=== PATIENT | male | born 1940 | race Two or more races ===

== ENCOUNTER 2017-07-31 19:08 | Inpatient (IN) | payer OTHER, MEDICAID ==
[~2017-07-31] VITALS: Ht 165.1 cm; Wt 72.6 kg
[~2017-07-31 19:08] MED LIST: ASPI-1169 PO; ATOR10TA PO; CARV6.25 PO; Digoxin PO; FURO-144 PO; LOSA50TA3 PO; OSEL75CA PO; PANT40TA2 PO; WARF5TAB77 PO
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
--- NOTE | 2017-07-31 19:32 | NUR ---
VICE PRESIDENT OF COMMUNICATIONS BEDSIDE FOR CHEST X-RAY
[2017-07-31 19:34] LABS: BASOPHILS # (AUTO) 0.1 /CMM (0.0-0.2); BASOPHILS % (AUTO) 1.4 % (0.0-2.0); EOSINOPHILS % (AUTO) 1.1 % (0.0-6.0); HEMATOCRIT 47 % (39-51); HEMOGLOBIN 15.7 g/dL (13.5-17.5); LYMPHOCYTES # (AUTO) 1.2 /CMM (0.8-4.8); LYMPHOCYTES % (AUTO) 14.9 % (20.0-44.0); MEAN CORPUSCULAR HEMOGLOBIN 29 PG (26.0-33.0); MEAN CORPUSCULAR HGB CONC 33 g/dl (31.0-36.0); MEAN CORPUSCULAR VOLUME 88 fL (80-96); MONOCYTES # (AUTO) 0.8 /CMM (0.1-1.30); MONOCYTES % (AUTO) 9.9 % (2.0-12.0); NEUTROPHILS # (AUTO) 5.7 /CMM (1.8-8.9); NEUTROPHILS % (AUTO) 72.7 % (43.0-81.0); PLATELET COUNT (AUTO) 110 /CMM (150-450); RDW COEFFICIENT OF VARIATION 13.3 (11.5-15.0); RED BLOOD CELL COUNT(AUTO) 5.34 MIL/uL (4.5-6.0); WHITE BLOOD COUNT (AUTO) 7.9 K/uL (4.3-11.0)
[2017-07-31 19:44] LABS: CALCIUM, SERUM 9.6 mg/dL (8.5-10.1); CARBON DIOXIDE 25 mmol/L (21-32); CHLORIDE 103 mmol/L (98-107); CREATININE 1.1 mg/dL (0.6-1.3); GLUCOSE 212 mg/dL (74-106); POTASSIUM 3.5 mmol/L (3.5-5.1); SODIUM SERUM 139 mmol/L (136-145); UREA NITROGEN, BLOOD 29 mg/dL (7-18)
[2017-07-31 19:52] LABS: INR 1.5 (0.85-1.15)
[2017-07-31 20:11] LABS: TROPONIN I 0.017 ng/mL (0.00-0.056)
[2017-07-31] MEDS ORDERED: ASPIRIN EC 325 MG TABLET.DR PO ONE ×2 (20:57→21:00)
--- NOTE | 2017-07-31 21:00 | NUR ---
LUCAS PAGED, ASHWINI FARIAS FORMING ROLL OPERATOR HEAVY DUTY BORE MILL OPERATOR FOR PLASTIC
--- NOTE | 2017-07-31 21:23 | NUR ---
TELE 327-2 FOR CHEST PAIN AND SYNCOPE, ASHWINI FARIAS NP ADMITTING
[2017-07-31] MEDS ORDERED: NITROGLYCERIN 0.4 MG/TAB BOTTLE SL PRN (21:30)
[2017-07-31] MEDS ORDERED: INSULIN REGULAR, HUMAN 100 UNIT/ML 3 ML VIAL SQ PRN (21:30)
[2017-07-31] MEDS ORDERED: *INSULIN REGULAR(HUMULIN R)HUM 100 UNIT/ML VIAL SQ PRN (21:30)
[2017-07-31] MEDS ORDERED: MORPHINE SULFATE INJ 2 MG/ML DISP.SYRIN IV PRN (21:30)
[2017-07-31] MEDS ORDERED: IV NS 0.9% 1,000 ML IV SCH (21:30)
[2017-07-31] MEDS ORDERED: DEXTROSE 50%-WATER 50 ML DISP.SYRIN IV PRN (21:30)
[2017-07-31] MEDS ORDERED: ONDANSETRON HCL/PF 4 MG/2 ML VIAL IVP PRN (21:30)
--- NOTE | 2017-07-31 21:56 | NUR ---
REPORT GIVEN TO YOUNG ADULT LIBRARIANMAIKEL RO FOR QUENTIN
--- NOTE | 2017-07-31 22:15 | NUR ---
SENIOR PACKAGING ENGINEERTRANSPORTATION PROGRAM DIRECTOR NOTES: PATIENT ARRIVED TO UNIT FROM ER VIA GURNEY. ALERT, ORIENTED X 4, CROATIAN SPEAKING BUT CAN UNDERSTAND AND SPEAK A LITTLE MARTINIQUAIS. BREATHING EVEN AND UNLABORED. NO COMPLAINTS OF ANY PAIN OR DISCOMFORT OF THIS TIME. AT BEDSIDE. SKIN ASSESSMENT DONE; NO OPEN WOUNDS. PATIENT HAS PACEMAKER ON LEFT UPPER CHESTWALL. PATIENT ON TELE MONITOR; AFIB 86. IV ACCESS ON LEFT FOREARM. ORIENTED TOTHE USE OF CALL ORTEGA. BED IN LOW LOCKED POSITION. WILL CONTINUE TO MONITOR Addendum: 08/01/17 at 0120 by JAYJAY COTTER RN ADDITIONAL NOTES: DENIES DIZZINESS, DENIES NAUSEA AND VOMITING. DENIES WEAKNESS
[2017-07-31 22:20] VITALS: BP 120/85
[2017-07-31 22:30] VITALS: BP 120/85
[2017-07-31] MEDS: BLOOD SUGAR DIAGNOSTIC 1 EACH STRIP VI SCH (22:45)
--- NOTE | 2017-07-31 23:00 | NUR ---
RN NOTES: BSL 198. PATIENT REFUSED INSULIN. STATED THAT HE DOESN'T TAKE IT AT HOME, HE TAKES ONLY ORAL. EXPLAINED TO HIM THAT HE IS IN THE HOSPITAL, EXPLAINED ALSO THE RISKS OF NOT TAKING IT. PATIENT AWARE BUT STILL REFUSED. NUZHAT MARADIAGA MADE AWARE
[2017-07-31] MEDS: SIMVASTATIN 20 MG TABLET PO SCH (23:06)
[2017-07-31] MEDS: INSULIN REGULAR, HUMAN 100 UNIT/ML 3 ML VIAL SQ PRN (23:25)
[2017-08-01] VITALS (23 sets, daily range): BP systolic 103–147; BP diastolic 46–82
--- NOTE | 2017-08-01 04:04 | NUR ---
ORTHOTICS PROSTHETICS ASSISTANT NOTES: PATIENT USING THE URINAL AT THIS TIME. DENIES ANY PAIN OR DISCOMFORT. AT BEDSIDE. WILL CONTINUE TO MONITOR
--- NOTE | 2017-08-01 06:37 | NUR ---
RN NOTES: BSL 136. PATIENT REFUSED INSULIN.
--- NOTE | 2017-08-01 06:58 | NUR ---
OFFICE SERVICES MANAGER CLOSING NOTES: PATIENT IN BED, TAKING TO . PATIENT REMAINS STABLE. NO COMPLAINTS OF CHEST PAIN OR ANY DISCOMFORT THROUGH THE NIGHT. DENIES DIZZINESS. DENIES N/V. ON TELE MONITOR, AFIB 84/ V/ PACING WITH OCCASIONAL PVC's. ALL NEEDS ATTENDED TO. ALL DUE MEDICATIONS GIVEN ORDERED. REMINDED PATIENT NOT TO EAT ANYTHING BEFORE DR. JONES COMES. CALL ORTEGA WITHIN REACH. BED IN LOW LOCKED POSITION WITH SIDERAILSX2 UP. WILL ENDORSE QUENTIN TO AM SHIFT RN
[2017-08-01 07:22] LABS: BASOPHILS % (AUTO) 0.2 % (0.0-2.0); EOSINOPHILS % (AUTO) 0.7 % (0.0-6.0); HEMATOCRIT 47 % (39-51); HEMOGLOBIN 15.3 g/dL (13.5-17.5); LYMPHOCYTES % (AUTO) 13.5 % (20.0-44.0); MEAN CORPUSCULAR HEMOGLOBIN 30 PG (26.0-33.0); MEAN CORPUSCULAR HGB CONC 33 g/dl (31.0-36.0); MEAN CORPUSCULAR VOLUME 92 fL (80-96); MONOCYTES # (AUTO) 0.4 /CMM (0.1-1.30); MONOCYTES % (AUTO) 5.7 % (2.0-12.0); NEUTROPHILS # (AUTO) 5.8 /CMM (1.8-8.9); NEUTROPHILS % (AUTO) 79.9 % (43.0-81.0); PLATELET COUNT (AUTO) 98 /CMM (150-450); RDW COEFFICIENT OF VARIATION 14.3 (11.5-15.0); RED BLOOD CELL COUNT(AUTO) 5.08 MIL/uL (4.5-6.0); WHITE BLOOD COUNT (AUTO) 7.3 K/uL (4.3-11.0)
[2017-08-01] MEDS ORDERED: TERA2CAP4 PO (07:24)
[2017-08-01] MEDS ORDERED: VALS1TAB52 PO (07:24)
[2017-08-01] MEDS ORDERED: CARV25TA2 PO (07:24)
[2017-08-01] MEDS ORDERED: SITA100T PO (07:24)
[2017-08-01] MEDS ORDERED: GLIP1TAB6 PO (07:24)
[2017-08-01] MEDS ORDERED: RIVA10TA PO (07:24)
[2017-08-01] MEDS ORDERED: ATOR10TA PO (07:24)
[2017-08-01 07:31] LABS: CALCIUM, SERUM 8.8 mg/dL (8.5-10.1); CARBON DIOXIDE 26 mmol/L (21-32); CHLORIDE 106 mmol/L (98-107); CREATININE 0.9 mg/dL (0.6-1.3); GLUCOSE 134 mg/dL (74-106); MAGNESIUM 1.8 mg/dL (1.8-2.4); PHOSPHORUS 3.4 mg/dL (2.5-4.9); POTASSIUM 3.7 mmol/L (3.5-5.1); SODIUM SERUM 142 mmol/L (136-145); UREA NITROGEN, BLOOD 27 mg/dL (7-18)
[2017-08-01 07:40] LABS: CHOLESTEROL 83 mg/dL (<200); HDL CHOLESTEROL 37 mg/dL (40-60); LDL 47 mg/dL (0-99); THYROID STIMULATING HORMONE 1.054 uIU/mL (0.358-3.74); TRIGLYCERIDES 118 mg/dL (30-150)
--- NOTE | 2017-08-01 08:00 | NUR ---
RN NOTES PATIENT IN BED RESTING. ALERT,ORIENTED X3. PATIENT WITH AT BEDSIDE. PERIPHERAL IV INTACT PATENT. BED IN LOW LOCKED POSITION. CALL LIGHT WITHIN REACH. WILL CONTINUE TO MONITOR.
[2017-08-01] MEDS: ASPIRIN 325 MG TABLET PO SCH (08:23)
[2017-08-01] MEDS: CARVEDILOL 6.25 MG TABLET PO SCH ×2 (08:23→21:37)
[2017-08-01] MEDS: FUROSEMIDE 40 MG TABLET PO SCH (08:23)
[2017-08-01] MEDS: BLOOD SUGAR DIAGNOSTIC 1 EACH STRIP VI SCH ×4 (08:24→21:39)
[2017-08-01] MEDS: LOSARTAN POTASSIUM 50 MG TABLET PO SCH (08:24)
[2017-08-01] MEDS: PANTOPRAZOLE 40 MG TABLET.DR PO SCH (08:25)
[2017-08-01] MEDS ORDERED: OSELTAMIVIR PHOSPHATE 75 MG CAPSULE PO SCH (09:00)
[2017-08-01 09:30] LABS: INR 1.27 (0.87-1.13)
[2017-08-01 10:55] LABS: EOSINOPHILS % (MANUAL) 1 % (0-4); LYMPHOCYTES % (MANUAL) 12 % (16-48); MONOCYTES % (MANUAL) 3 % (0-11.0); NEUTROPHILS % (MANUAL) 84 (42-76)
--- NOTE | 2017-08-01 11:55 | NUR ---
MILK INSPECTOR NOTES PATIENT NOTED WITH V TACH LASTING ONLY COUPLE OF SECONDS. PATIENT STATES HE FELT WARM ALL OF A SUDDEN STATES HE WAS SPEAKING TO HIS SON WHILE IT HAPPENED. CHIKA NAVA INFORMED OF EPISODE WILL EVALUATE PATIENT. ALSO CHIKA WALLS NOTIFIED OF PATIENT HOME MEDICATIONS. STATES WILL REVIEW MEDICATIONS.
[2017-08-01] MEDS: INSULIN REGULAR, HUMAN 100 UNIT/ML 3 ML VIAL SQ PRN ×3 (12:53→21:43)
[2017-08-01] MEDS ORDERED: DIGOXIN 0.125 MG TABLET PO SCH (13:00)
--- NOTE | 2017-08-01 13:50 | NUR ---
TRAVEL PHYSICAL THERAPIST NOTES PATIENT NOTED WITH ANOTHER EPISODE OF V TAC. PATIENT STATES HE FELT HIS HEART BEATING FAST. PATIENT ALERT, ORIENTEDX3. DENIES ANY PAIN. CHIKA NAVA NOTIFIED, AT BEDSIDE EVALUATING PATIENT. WILL CONTINUE TO MONITOR.
[2017-08-01] MEDS ORDERED: MGSO4/D5W 100 ML IV SCH (14:00)
[2017-08-01] MEDS ORDERED: Magnesium 1GM/D5W 100ML PREMIX PIGGYBACK IV ONE (14:00)
--- NOTE | 2017-08-01 14:00 | NUR ---
SHEET TAILER NOTES ORDERS TO TRANSFER PATIENT TO ICU FOR AMIODARONE DRIP. PATIENT ALERT, ORIENTED X3 AT BEDSIDE. VS WNL. REPORT GIVEN TO NATALIIA KO. PATIENT TRANSFERRED TO ICU ROOM 257.
[2017-08-01] MEDS ORDERED: AMIODARONE 150 MG in IV D5W 100 ML IV ONE (15:00)
--- NOTE | 2017-08-01 15:08 | NUR ---
BOILERMAKING SUPERVISOR NOTE 1430: Received patient from Tele, transferred to ICU due to episodes of Vtach. Placed patient on the monitor, noted with SR 70's, with occasional V pacing. CN made Viktor CHEF DE FROID aware, CHEF DE FROID said to continue on Mg, Amio load and drip and keep in ICU. EKG done, NSR, made Viktor CHEF DE FROID aware. Patient verbalized he have been shocked via AICD when he was [place] [facility]. Patient accompanied by . Started new PIV on RW g20. 1500: No any significant changes noted at this time. kept clean, warm and and dry. Needs attended.
[2017-08-01] MEDS ORDERED: AMIODARONE 900 MG in IV D5W 482 ML IV PRN (16:00)
[2017-08-01] MEDS ORDERED: WARFARIN SODIUM 2 MG TABLET PO SCH (17:00)
[2017-08-01] MEDS ORDERED: IV NS 0.9% 1,000 ML IV PRN (17:30)
--- NOTE | 2017-08-01 18:56 | NUR ---
STOPBOARD ASSEMBLER NOTE 1520: PPM/AICD was checked by specialist, working well. With episodes of Vtach seen and shocked by AICD. 1850: Endorsed to next shift for QUENTIN, no significant changes. Remained on SR 70's with A V pacing. On Amio drip @ 1mg/.
--- NOTE | 2017-08-01 19:30 | NUR ---
RN NOTES RECEIVED PT AWAKE ON BED AOX 3 ABLE TO MAKE KNOWN NEEDS IN TUVALUAN AND INDONESIAN LANGUAGE. NO ACUTE RESP DISTRESS. V- PACING WITH PVC'S HR 70'S ON TELE MONITOR. AFEBRILE. IV SITE ON RIGHT WRIST AND LEFT WRIST WITH NS @ 50 CC/HR AND AMIODARONE @ 1 MG/HR. PT IS ABLE TO MOVE INDEPENDENTLY ON BED. STAND AND WALK IN THE ROOM. KEPT PT CLEAN AND DRY WILL CONTINUE TO MONITOR. CALL LIGHT KEPT WITHIN EASY REACH.
--- NOTE | 2017-08-01 20:50 | NUR ---
RN NOTES 20:45 PM - CHANGES AMIODARONE RATE @ 0.5 MG/MIN. PT REMAINED STABLE AT THIS TIME, NO COMPLAIN OF CHEST PAIN. NO SOB. WILL CONT. TO MONITOR.
[2017-08-01] MEDS: SIMVASTATIN 20 MG TABLET PO SCH (21:36)
[2017-08-02] VITALS (47 sets, daily range): BP systolic 91–150; BP diastolic 48–77
--- NOTE | 2017-08-02 07:00 | NUR ---
RN NOTES PT REMAINED IN STABLE CONDITION THROUGHOUT THE SHIFT. AFEBRILE. VS STABLE./ AMIODARONE 0.5 MG ONGOING AND TOLERATED WELL. KEPT PT CLEAN AND DRY. ENDORSED CONTINUITY OF CARE TO AM NURSE.
[2017-08-02] MEDS: BLOOD SUGAR DIAGNOSTIC 1 EACH STRIP VI SCH ×4 (07:34→21:33)
[2017-08-02] MEDS: CARVEDILOL 6.25 MG TABLET PO SCH ×2 (08:23→21:33)
[2017-08-02] MEDS: LOSARTAN POTASSIUM 50 MG TABLET PO SCH (08:23)
[2017-08-02] MEDS: PANTOPRAZOLE 40 MG TABLET.DR PO SCH (08:24)
[2017-08-02] MEDS: ASPIRIN 325 MG TABLET PO SCH (08:24)
[2017-08-02] MEDS: FUROSEMIDE 40 MG TABLET PO SCH (08:24)
[2017-08-02 08:32] LABS: CALCIUM, SERUM 8.4 mg/dL (8.5-10.1); CARBON DIOXIDE 28 mmol/L (21-32); GLUCOSE 168 mg/dL (74-106); PHOSPHORUS 3.3 mg/dL (2.5-4.9); UREA NITROGEN, BLOOD 24 mg/dL (7-18)
[2017-08-02 08:35] LABS: CHLORIDE 103 mmol/L (98-107); POTASSIUM 3.8 mmol/L (3.5-5.1); SODIUM SERUM 137 mmol/L (136-145)
[2017-08-02 08:37] LABS: BASOPHILS % (AUTO) 0.2 % (0.0-2.0); EOSINOPHILS % (AUTO) 0.4 % (0.0-6.0); HEMATOCRIT 49 % (39-51); HEMOGLOBIN 16.1 g/dL (13.5-17.5); LYMPHOCYTES # (AUTO) 1.1 /CMM (0.8-4.8); LYMPHOCYTES % (AUTO) 12.9 % (20.0-44.0); MEAN CORPUSCULAR HEMOGLOBIN 30 PG (26.0-33.0); MEAN CORPUSCULAR HGB CONC 33 g/dl (31.0-36.0); MEAN CORPUSCULAR VOLUME 91 fL (80-96); MONOCYTES # (AUTO) 0.4 /CMM (0.1-1.30); MONOCYTES % (AUTO) 4.9 % (2.0-12.0); NEUTROPHILS % (AUTO) 81.6 % (43.0-81.0); PLATELET COUNT (AUTO) 99 /CMM (150-450); RDW COEFFICIENT OF VARIATION 14.6 (11.5-15.0); RED BLOOD CELL COUNT(AUTO) 5.38 MIL/uL (4.5-6.0); WHITE BLOOD COUNT (AUTO) 8.6 K/uL (4.3-11.0)
[2017-08-02 08:56] LABS: EOSINOPHILS % (MANUAL) 1 % (0-4); LYMPHOCYTES % (MANUAL) 16 % (16-48); MONOCYTES % (MANUAL) 4 % (0-11.0); NEUTROPHILS % (MANUAL) 79 (42-76)
[2017-08-02] MEDS: Magnesium 1GM/D5W 100ML PREMIX 100 ML IV SCH ×2 (09:18→10:21)
[2017-08-02] MEDS ORDERED: MORPHINE SULFATE INJ 4 MG/ML DISP.SYRIN IV PRN (09:29)
--- NOTE | 2017-08-02 09:47 | NUR ---
MUSIC THERAPY TEACHER NOTE 0720: Received patient awake, A/O4, Thai speaking but understand little Frisian. Aware for the POC. On Amio drip @ 0.5mcg, A pacing 70's on the monitor, PPM pacing and sensing correctly. With 2PIVs intact. IVF infusing as ordered. Kept call light at reach, encouraged to use call light for assistance. 0820: S/E by Dr. Pickens, to keep in ICU for now. CN aware. 0945: No significant changes noted at this time. Able to use urinals. Mg ongoing, to give 2 bags.
[2017-08-02] MEDS: INSULIN REGULAR, HUMAN 100 UNIT/ML 3 ML VIAL SQ PRN ×2 (12:49→21:32)
[2017-08-02] MEDS: AMIODARONE HCL 200 MG TABLET PO SCH ×2 (13:30→16:10)
[2017-08-02] MEDS: RIVAROXABAN 10 MG TABLET PO SCH (17:09)
--- NOTE | 2017-08-02 17:53 | NUR ---
NIGHTCLUB MANAGER NOTE No any significant changes noted at this time. No episode of Vtachs. A pacing 50's. Stopped Amio drip @ 1300 for pulse 50's and held Amio PO for low pulse. No c/o chest pain. Kept clean, warm and dry. Needs attended. CN got an order to may transfer to Tele. PIVs intact.
[2017-08-02] MEDS: SIMVASTATIN 20 MG TABLET PO SCH (21:29)
[2017-08-03] VITALS (16 sets, daily range): BP systolic 116–158; BP diastolic 61–90
[2017-08-03 04:21] LABS: BASOPHILS % (AUTO) 0.6 % (0.0-2.0); EOSINOPHILS % (AUTO) 1.2 % (0.0-6.0); HEMATOCRIT 46 % (39-51); HEMOGLOBIN 15.2 g/dL (13.5-17.5); LYMPHOCYTES # (AUTO) 1.2 /CMM (0.8-4.8); LYMPHOCYTES % (AUTO) 15.4 % (20.0-44.0); MEAN CORPUSCULAR HEMOGLOBIN 30 PG (26.0-33.0); MEAN CORPUSCULAR HGB CONC 33 g/dl (31.0-36.0); MEAN CORPUSCULAR VOLUME 91 fL (80-96); MONOCYTES # (AUTO) 0.5 /CMM (0.1-1.30); MONOCYTES % (AUTO) 6.3 % (2.0-12.0); NEUTROPHILS # (AUTO) 5.8 /CMM (1.8-8.9); NEUTROPHILS % (AUTO) 76.5 % (43.0-81.0); PLATELET COUNT (AUTO) 97 /CMM (150-450); RDW COEFFICIENT OF VARIATION 14.5 (11.5-15.0); RED BLOOD CELL COUNT(AUTO) 5.04 MIL/uL (4.5-6.0); WHITE BLOOD COUNT (AUTO) 7.6 K/uL (4.3-11.0)
[2017-08-03 04:44] LABS: ALANINE AMINOTRANSFERASE 24 U/L (12-78); ALBUMIN 3.5 g/dL (3.4-5.0); ALKALINE PHOSPHATASE 63 U/L (46-116); ASPARTATE AMINOTRANSFERASE 18 U/L (15-37); BILIRUBIN,TOTAL 1.1 mg/dL (0.2-1.0); CALCIUM, SERUM 8.5 mg/dL (8.5-10.1); CARBON DIOXIDE 28 mmol/L (21-32); CHLORIDE 105 mmol/L (98-107); CREATININE 0.9 mg/dL (0.6-1.3); GLUCOSE 138 mg/dL (74-106); MAGNESIUM 1.9 mg/dL (1.8-2.4); POTASSIUM 3.2 mmol/L (3.5-5.1); SODIUM SERUM 141 mmol/L (136-145); TOTAL PROTEIN, SERUM 6.9 g/dL (6.4-8.2); UREA NITROGEN, BLOOD 25 mg/dL (7-18)
[2017-08-03 04:46] LABS: TROPONIN I 0.141 ng/mL (0.00-0.056)
--- NOTE | 2017-08-03 05:15 | NUR ---
RN NOTES TRANSFER PT TO [facility] AT ROOM 105.PT IS AWAKE ALERT ORIENTED NO SIGNIFICANT QUENTIN THROUGHOUT THE NIGHT. AFEBRILE. VS WNL. DENIES CHEST PAIN. REPORT GIVEN TO LUCIO GUTIERREZ RN FOR CONTINUITY OF CARE TO AM NURSE.
--- NOTE | 2017-08-03 05:20 | NUR ---
RN NOTES RECEIVED REPORT AND PATIENT FROM [facility], CARDIOVASCULAR TECH. PATIENT IS ALERT AND ORIENTED X 4 WITH NO SIGNS OF DISTRESS. SPEAKS LUXEMBOURGER. ABLE FOLLOW COMMANDS. PATIENT CAME WITH . NOTED PACEMAKER ON LEFT CHEST WALL. SKIN IS INTACT. INTRODUCED WITH UNIT AND CALL LIGHT. SAFETY MEASURES PROVIDED. WILL CONTINUE TO MONITOR PATIENT.
[2017-08-03 05:38] LABS: LYMPHOCYTES % (MANUAL) 18 % (16-48); NEUTROPHILS % (MANUAL) 77 (42-76)
[2017-08-03 05:39] LABS: MONOCYTES % (MANUAL) 5 % (0-11.0)
--- NOTE | 2017-08-03 07:15 | NUR ---
TELE/RN INITIAL NOTES RECEIVED PT IN BED IN SEMI FOWLERS POSITION, NO SOB NOTED. NO C/O PAIN. WITH INTACT AND PATENT LHAND AND RWRIST SL. SAFETY MEASURES OBSERVED. CALL LIGHT WITHIN REACH. WILL CONTINUE TO MONITOR
--- NOTE | 2017-08-03 07:30 | NUR ---
RN NOTES PT IS FOR D/C, EXIT CARE DONE. NO ACUTE DISTRESS THROUGHOUT SHIFT. SAFETY MEASURES OBSERVED AT ALL TIMES. ENDORSE TO PM SHIFT FOR D/C INSTRUCTIONS Addendum: 08/04/17 at 1034 by KESHA WOODWARD RN ADD: FOLLOW UP WITH CARDIO ARRANGED BY CM REFUSED BY PT. PT WISHES TO SEE THEIR OWN PROVIDER (DIVEHI SPEAKING)
[2017-08-03] MEDS: BLOOD SUGAR DIAGNOSTIC 1 EACH STRIP VI SCH ×3 (08:23→17:07)
[2017-08-03] MEDS: PANTOPRAZOLE 40 MG TABLET.DR PO SCH (08:24)
[2017-08-03] MEDS: ASPIRIN 325 MG TABLET PO SCH (08:24)
[2017-08-03] MEDS: FUROSEMIDE 40 MG TABLET PO SCH (08:24)
[2017-08-03] MEDS: AMIODARONE HCL 200 MG TABLET PO SCH ×3 (08:25→16:41)
[2017-08-03] MEDS: CARVEDILOL 6.25 MG TABLET PO SCH (08:25)
[2017-08-03] MEDS: LOSARTAN POTASSIUM 50 MG TABLET PO SCH (08:26)
[2017-08-03] MEDS: INSULIN REGULAR, HUMAN 100 UNIT/ML 3 ML VIAL SQ PRN ×3 (08:27→17:08)
[2017-08-03] MEDS: POTASSIUM CHLORIDE 20 MEQ TAB.PRT.SR PO SCH ×3 (11:07→12:58)
[2017-08-03] MEDS: Magnesium 1GM/D5W 100ML PREMIX 100 ML IV SCH ×2 (11:07→12:07)
[2017-08-03] MEDS: RIVAROXABAN 10 MG TABLET PO SCH (17:06)
--- NOTE | 2017-08-03 20:13 | NUR ---
MS RN NOTES PT D/C STABLE. ACCOMPANIED BY TEST ENGINEER NUCLEAR EQUIPMENT. EXIT CARE DONE.
== END 2017-08-03 20:00 | disposition home or self-care (01) | DRG 281 ==
LOC: ER 19:10 → TELE 21:39 → ICU 08-01 14:10 → TELE1 08-03 05:16 → MEDSG1 08-03 13:01
PROVIDERS: ADMIT Registered Nurse; ATTEND Registered Nurse
DX: I49.01 Ventricular fibrillation (principal); I21.A1 Myocardial infarction type 2; I50.22 Chronic systolic (congestive) heart failure; I42.9 Cardiomyopathy, unspecified; I49.9 Cardiac arrhythmia, unspecified; W22.11XA Striking against or struck by driver side automobile airbag, initial encounter; V89.2XXA Person injured in unspecified motor-vehicle accident, traffic, initial encounter; Y92.410 Unspecified street and highway as the place of occurrence of the external cause; I11.0 Hypertensive heart disease with heart failure; E86.0 Dehydration; E83.42 Hypomagnesemia; E87.6 Hypokalemia; Z79.82 Long term (current) use of aspirin; Z79.01 Long term (current) use of anticoagulants; Z79.899 Other long term (current) drug therapy; R07.9 Chest pain, unspecified; Z95.810 Presence of automatic (implantable) cardiac defibrillator; Z86.73 Personal history of transient ischemic attack (TIA), and cerebral infarction without residual deficits; E11.9 Type 2 diabetes mellitus without complications; E78.5 Hyperlipidemia, unspecified; I25.10 Atherosclerotic heart disease of native coronary artery without angina pectoris; I70.0 Atherosclerosis of aorta; I67.2 Cerebral atherosclerosis; I65.29 Occlusion and stenosis of unspecified carotid artery; I34.0 Nonrheumatic mitral (valve) insufficiency; I25.2 Old myocardial infarction
CPT/HCPCS: 36415; 70450-TC; 71045-TC; 80048-TC; 80053-TC; 80061-TC; 80162-TC; 82962-TC; 83735-TC; 83880; 84100-TC; 84443-TC; 84484-TC; 85025-TC; 85610-TC; 85730-TC; 87081-TC; 93307-TC; 93880-TC; A4606; C1751; J0282; J1815; J3475; J7030; J7060; Z7610

== ENCOUNTER 2017-09-24 10:35 | Inpatient (IN) | payer OTHER, MEDICAID ==
[~2017-09-24] VITALS: Ht 167.6 cm; Wt 72.3 kg
[~2017-09-24 10:35] MED LIST changes: -ASPI-1169 PO; +CARV25TA2 PO; -CARV6.25 PO; -Digoxin PO; -FURO-144 PO; +GLIP1TAB6 PO; -LOSA50TA3 PO; -OSEL75CA PO; -PANT40TA2 PO; +RIVA10TA PO; +SITA100T PO; +TERA2CAP4 PO; +VALS1TAB52 PO; -WARF5TAB77 PO
--- NOTE | 2017-09-24 10:37 | NUR ---
PT BIBRA FROM HOME TO ER BED 09. ME IS JAPANESE SPEAKING. PER REPORT, PT STARTED HAVING CHEST DISCOMFORT W/ DIZZINESS X TODAY. PER REPORT, PT HAS HX OF TN. GOWNED AND PLACED ON MONITOR. AWAITING MD MOURA.
--- NOTE | 2017-09-24 10:59 | NUR ---
DR DURAN AT BEDSIDE FOR EVAL.
[2017-09-24 11:14] LABS: BASOPHILS % (AUTO) 0.2 % (0.0-2.0); EOSINOPHILS % (AUTO) 0.2 % (0.0-6.0); HEMATOCRIT 51 % (39-51); HEMOGLOBIN 16.2 g/dL (13.5-17.5); LYMPHOCYTES # (AUTO) 1.2 /CMM (0.8-4.8); MEAN CORPUSCULAR HEMOGLOBIN 29 PG (26.0-33.0); MEAN CORPUSCULAR HGB CONC 32 g/dl (31.0-36.0); MEAN CORPUSCULAR VOLUME 92 fL (80-96); MONOCYTES # (AUTO) 0.4 /CMM (0.1-1.30); MONOCYTES % (AUTO) 4.4 % (2.0-12.0); NEUTROPHILS # (AUTO) 7.1 /CMM (1.8-8.9); NEUTROPHILS % (AUTO) 81.2 % (43.0-81.0); PLATELET COUNT (AUTO) 126 /CMM (150-450); RDW COEFFICIENT OF VARIATION 16.6 (11.5-15.0); RED BLOOD CELL COUNT(AUTO) 5.55 MIL/uL (4.5-6.0); WHITE BLOOD COUNT (AUTO) 8.8 K/uL (4.3-11.0)
[2017-09-24 11:21] LABS: INR 1.38 (0.85-1.15)
[2017-09-24 11:25] LABS: TROPONIN I 0.082 ng/mL (0.00-0.056)
[2017-09-24 11:30] LABS: ALANINE AMINOTRANSFERASE 35 U/L (12-78); ALBUMIN 3.9 g/dL (3.4-5.0); ALKALINE PHOSPHATASE 71 U/L (46-116); ASPARTATE AMINOTRANSFERASE 29 U/L (15-37); B-TYPE NATRIURETIC PEPTIDE 1030 PG/ML (0-125); BILIRUBIN,DIRECT 0.3 mg/dL (0.0-0.2); BILIRUBIN,TOTAL 0.8 mg/dL (0.2-1.0); CALCIUM, SERUM 9.4 mg/dL (8.5-10.1); CARBON DIOXIDE 28 mmol/L (21-32); CHLORIDE 103 mmol/L (98-107); GLUCOSE 152 mg/dL (74-106); POTASSIUM 4.1 mmol/L (3.5-5.1); SODIUM SERUM 138 mmol/L (136-145); TOTAL PROTEIN, SERUM 7.4 g/dL (6.4-8.2); UREA NITROGEN, BLOOD 22 mg/dL (7-18)
--- NOTE | 2017-09-24 11:31 | NUR ---
RADIOLOGY AT BEDSIDE FOR CHEST XRAY.
--- NOTE | 2017-09-24 11:50 | NUR ---
PAGED [employer] FOR PANEL - TRIAL MGR ASHWINI FARIAS
--- NOTE | 2017-09-24 12:21 | NUR ---
CALLED NURSE SUP FOR TELE BED
[2017-09-24] MEDS ORDERED: MORPHINE SULFATE INJ 2 MG/ML DISP.SYRIN IV PRN (12:30)
[2017-09-24] MEDS ORDERED: NITROGLYCERIN PACKET 1 GM PACKET TD PRN (12:30)
[2017-09-24] MEDS ORDERED: ONDANSETRON HCL/PF 4 MG/2 ML VIAL IVP PRN (12:30)
[2017-09-24] MEDS ORDERED: NITROGLYCERIN 0.4 MG/TAB BOTTLE SL PRN (12:30)
--- NOTE | 2017-09-24 12:47 | NUR ---
REPORT GIVEN TO YNES KO. PT AWAITNG TRANSFER TO FLOOR.
[2017-09-24 14:00] VITALS: BP 116/77
--- NOTE | 2017-09-24 14:00 | NUR ---
RN NOTES PATIENT RECEIVED A/OX4, DENIES CHEST PAIN AT THIS TIME, BREATHING EVEN AND UNLABORED, NO SOB NOTED, PATIENT WAS ABLE TO AMBULATE TO RESTROOM, C/O MILD DIZZINESS, BUT NO DISTRESS. SKIN ASSESSMENT COMPLETED, SKIN DRY AND INTACT, RECEIVED ORDERS FROM ASHWINI FARIAS. ORDERS NOTED AND CARRIED OUT. CALL LIGHT WITHIN REACH, WILL CONTINUE TO MONITOR.
[2017-09-24 16:00] VITALS: BP 109/81
--- NOTE | 2017-09-24 18:43 | NUR ---
RN NOTES PATIENT A/OX4, DENIES CHEST PAIN, NO DISTRESS NOTED AT THIS TIME, NO SOB NOTED, AT BEDSIDE, ATE DINNER AND TOLERATED WELL, KEPT COMFORTABLE, ALL NEEDS ATTENDED, CALL LIGHT WITHIN REACH, WILL ENDORSE TO DIE CASTING MACHINE MAINTAINER FOR QUENTIN.
--- NOTE | 2017-09-24 19:30 | NUR ---
LOAN PROCESSOR OPENING NOTES RECEIVED PATIENT IN BED AWAKE ALERT AND ORIENTED X4, ABLE TO MAKE NEEDS KNOWN. RESPIRATIONS EVEN AND UNLABORED WITH EQUAL RISE AND FALL OF CHEST, DENIES ANY SHORTNESS OF BREATH AT THIS TIME, DENIES ANY COMPLAINTS OF CHEST PAIN OR DISCOMFORT, PATIENT STATES "FEELS A LITTLE BIT DIZZY, BUT IS OKAY." URINE FOR UA COLLECTED PLACED FOR LAB WORKERS COMPENSATION CLAIMS SUPERVISOR. IV SITE SL TO LEFT HAND #20 G INTACT AND PATENT, NO REDNESS, NO INFILTRATION PRESENT. FLUIDS OFFERED TOLERATED, ORIENTED TO STAFF AND CALL LIGHT. CALL .LIGHT KEPT WITHIN REACH, SAFETY PRECAUTIONS RENDERED , LOW BED AND LOCKED. AT BEDSIDE. ALL NEEDS ATTENDED AT THIS TIME, PATIENT REMAINS COMFORTABLE WILL CONTINUE TO MONITOR.
[2017-09-24 20:00] VITALS: BP_SYST 111; BP_SYST 126; BP_DIAS 66; BP_DIAS 72
[2017-09-24] MEDS: CARVEDILOL 12.5 MG TABLET PO SCH (21:16)
[2017-09-24] MEDS: TERAZOSIN HCL 1 MG CAPSULE PO SCH (21:17)
[2017-09-24] MEDS: ATORVASTATIN 10 MG TABLET PO SCH (21:17)
[2017-09-24 21:49] LABS: APPEARANCE,URINE CLEAR (CLEAR); BILIRUBIN,URINE NEGATIVE (NEGATIVE); BLOOD, URINE NEGATIVE Ery/uL (NEGATIVE); COLOR,URINE YELLOW (YELLOW); KETONES,URINE NEGATIVE (NEGATIVE); LEUKOCYTE ESTERASE ,URINE NEGATIVE (NEGATIVE); NITRITE, URINE NEGATIVE (NEGATIVE); PH,URINE 5.5 (5.0-8.0); PROTEIN,URINE NEGATIVE (NEGATIVE); UGLUCOSE 3+ mg/dL (NEGATIVE); UROBILINOGEN,URINE 0.2 EU/dL (0.2)
[2017-09-24] MEDS ORDERED: SIMVASTATIN 20 MG TABLET PO SCH (22:00)
[2017-09-24 22:05] LABS: BACTERIA,URINE None seen /HPF (None Seen); RBC,URINE 0-2 /HPF (0-2); SQUAMOUS EPITHELIAL CELL,UR 0-2 /HPF (None Seen); WBC,URINE 0-2 /HPF (0-3)
[2017-09-25] VITALS (7 sets, daily range): BP systolic 100–130; BP diastolic 60–82
--- NOTE | 2017-09-25 02:20 | NUR ---
TUMBLERS SUPERVISOR NOTES TROPONIN LAB NOTED INCREASE AT 0.090 FROM 0.080 MD MADE AWARE, WITH NO NEW ORDERS AT THIS TIME, WILL CONTINUE TO MONITOR. PATIENT CURRENTLY ASYMPTOMATIC AT THIS TIME, DENIES CHEST PAIN, NO CHANGE IN VITAL SIGNS.
--- NOTE | 2017-09-25 06:31 | NUR ---
RN MS CLOSING NOTES PATIENT IN BED AWAKE ALERT AND ORIENTED X 4, ABLE TO VERBALIZE NEEDS, RESPIRATIONS EVEN AND UNLABORED WITH EQUAL RISE AND FALL OF CHEST. DENIES ANY PAIN OR DISCOMFORT, DENIES CHEST PAIN. IV SITE TO LEFT HAND SL REMAINS INTACT. ON POULTRY SEXER CONTROLLED A.FIB WITH OCCASIONAL V-PACING 76. NO CHANGE OF CONDITION NOTED. ALL NEEDS ATTENDED. CALL LIGHT KEPT WITHIN REACH ,PATIENT REMAINS COMFORTABLE WILL ENDORSE TO NEXT SHIFT.
[2017-09-25 07:15] LABS: BASOPHILS % (AUTO) 0.4 % (0.0-2.0); EOSINOPHILS % (AUTO) 0.5 % (0.0-6.0); HEMATOCRIT 48 % (39-51); HEMOGLOBIN 15.5 g/dL (13.5-17.5); LYMPHOCYTES # (AUTO) 1.4 /CMM (0.8-4.8); MEAN CORPUSCULAR HEMOGLOBIN 30 PG (26.0-33.0); MEAN CORPUSCULAR HGB CONC 32 g/dl (31.0-36.0); MEAN CORPUSCULAR VOLUME 93 fL (80-96); MONOCYTES # (AUTO) 0.4 /CMM (0.1-1.30); MONOCYTES % (AUTO) 4.9 % (2.0-12.0); NEUTROPHILS # (AUTO) 5.9 /CMM (1.8-8.9); NEUTROPHILS % (AUTO) 76.2 % (43.0-81.0); PLATELET COUNT (AUTO) 102 /CMM (150-450); RDW COEFFICIENT OF VARIATION 16.1 (11.5-15.0); RED BLOOD CELL COUNT(AUTO) 5.15 MIL/uL (4.5-6.0); WHITE BLOOD COUNT (AUTO) 7.8 K/uL (4.3-11.0)
[2017-09-25 07:23] LABS: CALCIUM, SERUM 8.5 mg/dL (8.5-10.1); CARBON DIOXIDE 30 mmol/L (21-32); CHLORIDE 102 mmol/L (98-107); CREATININE 1.1 mg/dL (0.6-1.3); GLUCOSE 106 mg/dL (74-106); MAGNESIUM 1.9 mg/dL (1.8-2.4); SODIUM SERUM 137 mmol/L (136-145); UREA NITROGEN, BLOOD 27 mg/dL (7-18)
--- NOTE | 2017-09-25 07:43 | NUR ---
RN OPENING NOTES PT IN BED AT LOWEST AND LOCKED POSITION, A/O X4, VERBALLY RESPONSIVE, NO SIGNS OF ANY DISTRESS, BREATHING EVEN AND UNLABORED, DENIES PAIN, LEFT HAND IV PATENT AND INTACT. ON DUPLICATING MACHINE MECHANIC WITH CONTROLLED A.FIB, PT STABLE AND CALL LIGHT WITHIN REACH, WILL CONTINUE TO MONITOR AND ASSESS.
[2017-09-25] MEDS: ASPIRIN 325 MG TABLET PO SCH (08:56)
[2017-09-25] MEDS: CARVEDILOL 12.5 MG TABLET PO SCH ×2 (08:57→21:17)
[2017-09-25] MEDS: VALSARTAN 80 MG TABLET PO SCH (08:59)
[2017-09-25] MEDS ORDERED: Medication Not On Formulary EA (Valsartan/Hydrochlorothiazide (Diovan Hct 320-12.5 Mg Ta PO SCH (09:00)
[2017-09-25] MEDS ORDERED: ENOXAPARIN SODIUM 60 MG/0.6 ML DISP.SYRIN SQ SCH (09:00)
[2017-09-25] MEDS: HYDROCHLOROTHIAZIDE 25 MG TABLET PO SCH (09:05)
[2017-09-25] MEDS: RIVAROXABAN 10 MG TABLET PO SCH (09:08)
--- NOTE | 2017-09-25 15:12 | NUR ---
PAD EXTRACTOR TENDER NOTES PATIENT NOTED WITH RUNS OF V-TACH PATIENT ASYMPTOMATIC RESTING IN BED COMFORTABLE. ASHWINI Connor NP MADE AWARE. PAGED DR. THOMPSON AWAITING CALL BACK.
[2017-09-25] MEDS ORDERED: AMIODARONE 150 MG in IV D5W 100 ML IV ONE (18:00)
[2017-09-25] MEDS ORDERED: AMIODARONE 900 MG in IV D5W 500 ML IV PRN (18:00)
--- NOTE | 2017-09-25 18:00 | NUR ---
SPRAYER HAND NOTES PATIENT SEEN AND EVALUATED BY DR. JONES ORDERS TO START PATIENT ON AMIODARONE DRIP AND TRANSFER TO [facility]. ORDERS NOTED AND CARRIED OUT .
--- NOTE | 2017-09-25 18:20 | NUR ---
[employer] NOTES PATIENT TRANSFERRED TO [facility] REPORT GIVEN TO GIOVANNY AT BEDSIDE. PATIENT ASYMPTOMATIC VS WNL. DENIES ANY DISCOMFORT OR PAIN.
[2017-09-25] MEDS: Magnesium 1GM/D5W 100ML PREMIX 100 ML IV SCH ×2 (18:36→19:48)
--- NOTE | 2017-09-25 18:40 | NUR ---
[facility] RN , patient received from [facility] to room 112-1 from [facility] patient awake and alert oriented x3 rsp unlabored no sob noted plan of care and safety discussed and verbalized understanding telemetry shows A fub with contrlled rate 70 with v pacing patient encouraged use of call light to make all needs known will continue to assess and evaluate call light with in reach
--- NOTE | 2017-09-25 19:45 | NUR ---
RN SPOKE TO MD JONES REGARDING PT'S VITAL SIGNS, MD AWARE OF PT'S SBP OF 100'S AND HR OF 60'S CONTROLLED AFIB. WITH ORDER TO CONTINUE AMIODARONE DRIP WITH BOLUS ORDERED.
[2017-09-25] MEDS ORDERED: AMIODARONE 900 MG in IV D5W 482 ML IV PRN (20:30)
[2017-09-25] MEDS: TERAZOSIN HCL 1 MG CAPSULE PO SCH (21:16)
[2017-09-25] MEDS: ATORVASTATIN 10 MG TABLET PO SCH (21:16)
[2017-09-26] VITALS: BP 98/65
--- NOTE | 2017-09-26 00:20 | NUR ---
RN SPOKE TO MD JONES, MADE AWARE OF PT'S VITAL SIGNS, PT ON TELE AFIB WITH MULTIPLE LONG EPISODES OF V-TACH, V FIB. PT ASYMPTOMATIC. AWARE WITH NO NEW ORDERS ATT HIS TIME
[2017-09-26 04:00] VITALS: BP 102/74
[2017-09-26 06:26] LABS: BASOPHILS % (AUTO) 0.5 % (0.0-2.0); EOSINOPHILS % (AUTO) 0.7 % (0.0-6.0); HEMATOCRIT 49 % (39-51); HEMOGLOBIN 15.7 g/dL (13.5-17.5); LYMPHOCYTES # (AUTO) 0.9 /CMM (0.8-4.8); LYMPHOCYTES % (AUTO) 12.9 % (20.0-44.0); MEAN CORPUSCULAR HEMOGLOBIN 30 PG (26.0-33.0); MEAN CORPUSCULAR HGB CONC 32 g/dl (31.0-36.0); MEAN CORPUSCULAR VOLUME 92 fL (80-96); MONOCYTES # (AUTO) 0.4 /CMM (0.1-1.30); MONOCYTES % (AUTO) 6.2 % (2.0-12.0); NEUTROPHILS # (AUTO) 5.3 /CMM (1.8-8.9); NEUTROPHILS % (AUTO) 79.7 % (43.0-81.0); PLATELET COUNT (AUTO) 107 /CMM (150-450); RDW COEFFICIENT OF VARIATION 15.9 (11.5-15.0); RED BLOOD CELL COUNT(AUTO) 5.33 MIL/uL (4.5-6.0); WHITE BLOOD COUNT (AUTO) 6.7 K/uL (4.3-11.0)
[2017-09-26 06:41] LABS: CALCIUM, SERUM 8.6 mg/dL (8.5-10.1); CARBON DIOXIDE 30 mmol/L (21-32); CHLORIDE 102 mmol/L (98-107); CREATININE 0.9 mg/dL (0.6-1.3); GLUCOSE 178 mg/dL (74-106); SODIUM SERUM 139 mmol/L (136-145); UREA NITROGEN, BLOOD 22 mg/dL (7-18)
[2017-09-26 08:00] VITALS: BP 107/82
--- NOTE | 2017-09-26 08:00 | NUR ---
TD/RN AM SHIFT INITIAL NOTES RECEIVED PT AWAKE SITTING IN BED WITH AT BEDSIDE. PT A/O X 4, DENIES CHEST PAIN OR FEELING OF PALPITATION OR DIZZINESS. ON 2L O2 VIA N/C SATURATING @ 96%, LUNG SOUNDS CLEAR, ON TELE A-FIB, V-PACING HR 86, NO EPISODE OF V-TACH AT THIS TIME. WITH ON GOING INFUSION OF AMIODARONE 0.5MG/MIN, IV SITE PATENT WITH NO S/S OF INFECTION. PT IS COMFORTABLE AT THIS TIME, SCHEDULED AM MEDS TO BE GIVEN. CL WITHIN REACHED AND SAFETY MAINTAINED. ON GOING MONITORING.
[2017-09-26] MEDS: VALSARTAN 80 MG TABLET PO SCH (08:34)
[2017-09-26] MEDS: ASPIRIN 325 MG TABLET PO SCH (08:34)
[2017-09-26] MEDS: HYDROCHLOROTHIAZIDE 25 MG TABLET PO SCH (08:35)
[2017-09-26] MEDS: CARVEDILOL 12.5 MG TABLET PO SCH (08:35)
[2017-09-26] MEDS: RIVAROXABAN 10 MG TABLET PO SCH (08:37)
--- NOTE | 2017-09-26 09:00 | NUR ---
TD/RN ROUNDS - DR. JONES PT SEEN & EXAMINED BY DR. JONES, NO NEW ORDERS RECEIVED AT THIS TIME, MD IS AWARE OF SERIES OF V-TACH REPORTED. PER CHARGE NURSE, PT NEEDS TO BE TRANSFERRED FOR AN ABLATION PROCEDURE. CONTINUING MONITORING.
[2017-09-26 09:47] LABS: MAGNESIUM 2.3 mg/dL (1.8-2.4); PHOSPHORUS 4.1 mg/dL (2.5-4.9)
[2017-09-26 12:00] VITALS: BP 106/60
[2017-09-26 16:00] VITALS: BP 98/63
--- NOTE | 2017-09-26 16:00 | NUR ---
TD/RN AFTERNOON ROUNDS NO ACUTE CHANGE OF CONDITION. PT MADE AWARE OF PLAN TO TRANSFER TO HIGHER LEVEL OF CARE FOR ABLATION PROCEDURE. MONITORING CONTINUED.
--- NOTE | 2017-09-26 17:23 | NUR ---
TD/RN REPORT - [facility] REPORT GIVEN TO LAVERN HECTOR RN FOR PT TO BE TRANSFERRED TO [facility] FOR AN ABLATION PROCEDURE. NO ACUTE CHANGE OF CONDITION. MONITORING CONTINUED.
--- NOTE | 2017-09-26 18:55 | NUR ---
TD/SOCIAL WORK CASE MANAGER TO HIGHER LEVEL OF CARE DISCHARGE INSTRUCTIONS GIVEN TO PT, VERBALIZED UNDERSTANDING. PERSONAL BELONGINGS RETURNED, INVENTORY LOG SIGNED SIGNED OFF. REPORT GIVEN TO AMBULANCE PERSONNEL, DISCHARGE DOCUMENTS GIVEN. IV SITE FLUSHED, PATENT. KEPT PER REQUEST OF [facility]. PT LEFT TD UNIT IN STABLE CONDITION VIA ADDYRNEY ACCOMPANIED BY PT'S .
== END 2017-09-26 18:50 | disposition short-term general hospital (02) | DRG 309 ==
LOC: ER 10:36 → TELE 13:19 → TELE-TD 09-25 18:29
PROVIDERS: ADMIT Registered Nurse; ATTEND Registered Nurse
DX: I48.92 Unspecified atrial flutter (principal); I50.22 Chronic systolic (congestive) heart failure; I42.9 Cardiomyopathy, unspecified; E78.5 Hyperlipidemia, unspecified; I48.91 Unspecified atrial fibrillation; I11.0 Hypertensive heart disease with heart failure; I25.2 Old myocardial infarction; E11.9 Type 2 diabetes mellitus without complications; Z79.84 Long term (current) use of oral hypoglycemic drugs; Z95.810 Presence of automatic (implantable) cardiac defibrillator; Z86.73 Personal history of transient ischemic attack (TIA), and cerebral infarction without residual deficits; Z79.899 Other long term (current) drug therapy; Z79.01 Long term (current) use of anticoagulants; I25.10 Atherosclerotic heart disease of native coronary artery without angina pectoris
CPT/HCPCS: 36415; 71045-TC; 80048-TC; 80076-TC; 81000-TC; 83735-TC; 83880; 84100-TC; 84484-TC; 85025-TC; 85730-TC; 87081-TC; A4606; J0282; J3475; J7060; Z7610